=== PATIENT | female | born 1990 | race African-American/Black ===

== ENCOUNTER 2017-03-15 18:33 | Emergency (ER) | payer OTHER ==
[~2017-03-15] VITALS: Ht 162.6 cm; Wt 74.8 kg
[~2017-03-15 18:33] MED LIST: ADVIL100 M2 PO; AZITHROMYCIN 2250 MG PO; CYCLOBENZAPRINE10 MG PO; IBUPROFEN 800800 MG PO; LANTUS SUBQ; LANTUS100 UNIT/M SUBQ; MACROBID 100 M100 M1 PO; MOBIC15 MG PO; NAPROSYN500 MG PO; NEUTRAPHOS PO; NORCO 5-325 TA1 EACH PO; NOVOLIN N100 UNIT/1 SQ; NOVOLIN R100 UNIT/1; NOVOLIN R100 UNIT/1 SQ; NOVOLOG100 UNIT/1 INJECTION; NOVOLOG100 UNIT/1 SQ; ONDANSETRON HCL4 M2 PO; PHENERGAN 25 MG25 M1 PO; VENTOLIN HFA 1818 GM INH; ZOFRAN ODT4 MG PO
[2017-03-15] MEDS ORDERED: FLEXERIL PO (19:40)
[2017-03-15] MEDS ORDERED: MOBIC15 MG PO (19:40)
== END 2017-03-15 19:52 | disposition home or self-care (01) ==
LOC: ER 18:33
DX: S16.1XXA Strain of muscle, fascia and tendon at neck level, initial encounter (principal); R51 Headache; E11.9 Type 2 diabetes mellitus without complications; F17.210 Nicotine dependence, cigarettes, uncomplicated; F10.99 Alcohol use, unspecified with unspecified alcohol-induced disorder; Z79.4 Long term (current) use of insulin; V89.2XXA Person injured in unspecified motor-vehicle accident, traffic, initial encounter; Y93.89 Activity, other specified; Y92.89 Other specified places as the place of occurrence of the external cause; Y99.8 Other external cause status

== ENCOUNTER 2019-09-13 20:27 | Emergency (ER) | payer OTHER ==
[~2019-09-13] VITALS: Ht 162.6 cm; Wt 72.6 kg
[~2019-09-13 20:27] MED LIST changes: +FLEXERIL PO
[2019-09-13] MEDS ORDERED: PHENERGAN 25 MG25 MG PO (20:42)
[2019-09-13] MEDS ORDERED: MOBIC15 MG PO (22:07)
[2019-09-13] MEDS ORDERED: VALIUM5 MG PO (22:07)
[2019-09-13 22:20] VITALS: BP 132/68
== END 2019-09-13 22:15 | disposition home or self-care (01) ==
LOC: ER 20:27
DX: S16.1XXA Strain of muscle, fascia and tendon at neck level, initial encounter (principal); S39.012A Strain of muscle, fascia and tendon of lower back, initial encounter; E11.9 Type 2 diabetes mellitus without complications; F17.210 Nicotine dependence, cigarettes, uncomplicated; Z79.4 Long term (current) use of insulin; V89.2XXA Person injured in unspecified motor-vehicle accident, traffic, initial encounter; Y93.89 Activity, other specified; Y92.488 Other paved roadways as the place of occurrence of the external cause; Y99.8 Other external cause status